=== PATIENT | female | born 1960 | race Caucasian/White ===

== ENCOUNTER → 2017-05-16 | Outpatient (CLI) | payer OTHER ==
[~2017-05-16] MED LIST: ACIPHEX20 MG PO; ALBUTEROL17 GM INH; ALPRAZOLAM; ALPRAZOLAM PO; AMITRIPTYLINE H50 MG PO; AMITRYPTYLINE PO; BACTRIM DS TABL1 TAB PO; CALCIUM 600 +1 EAC3 PO; CARAFATE; CLOPIDOGREL75 MG PO; DILANTIN PO; DOXYCYCLINE PO; ESCITALOPRAM OX20 MG PO; HYDROCODONE/A1 UDTA2; IPRATR-ALBUTEROL3 ML; KEPPRA500 M2 PO; KEPPRA500 MG PO; KEPPRA750 M1 PO; KEPPRA750 MG PO; LEVAQUIN PO; LEXAPRO PO; LEXAPRO20 MG PO; LIPITOR PO; LIPITOR80 MG PO; LOPID600 MG PO; LORTAB 10-3251 EACH PO; LORTAB 10-5001 EACH PO; LORTAB 10/500 T1 TAB PO; METHADONE; METHADONE HCL10 MG PO; METHADONE PO; NEURONTIN PO; PHENERGAN PO; PLAVIX PO; POSTURE600 MG PO; PREDNISONE PO; PRILOSEC; PRO AIR; PRO AIR INH; PROAIR HFA8.5 GM; PROAIR HFA8.5 GM IH; PROAIR HFA8.5 GM INH; PROZAC; PROZAC PO; PYRIDIUM PO; RANITIDINE HCL150 M1 PO; SIMVASTATIN20 MG PO; SOMA PO; VICODIN; VISTARIL; XANAX1 MG PO
--- NOTE | ~2017-05-16 | MY29 ---
[facility] A Service of [facility] RADIOLOGY TEXT RESULTS PATIENT: JONATHAN NICHOLSON LOCATION: [facility] : 60 UNIT #: [id number] AGE: [address]: Latia Daly MD SEX: F ORDER DR: [id number] [id number] [facility]. [place], [place] [address] [id number] O MR#: [id number] Acc #: [id number] NAME: JONATHAN NICHOLSON : 1960 SEX: F STUDY DATE/TIME: 05/16/2017 13:00 UNIT: [facility] ROOM: STUDY DESCRIPTION: MY SUDHAKAR SCREENING W/ CAD BILAT Attending Physician: Latia Daly M.D. Referring Physician: Latia Daly M.D. Ordering Physician: Latia Daly M.D. Primary Care Physician: Latia Daly M.D. MEDICAL IMAGING REPORT This report is preliminary unless electronic signature is present EXAM Bilateral digital screening mammogram with CAD. COMPARISON May 09, 2016, November 21, 2015, October 02, 2015, September 30, 2012, and October 29, 2010. INDICATION Breast cancer screening. 56-year-old asymptomatic female who reports benign excisional biopsy of the right breast as well as a grandmother and aunts with breast cancer. FINDINGS There are scattered fibroglandular densities. Overall breast density has increased slightly bilaterally and it is noted the compression thickness is diminished from comparison study suggesting interval weight loss. There are no suspicious findings in either breast. IMPRESSION 1. No mammographic evidence of malignancy. Continued annual screening mammography and clinical breast exam are recommended. 2. Diffusely mildly increased breast density, possibly due to interval weight loss. This is a benign finding given the bilateral symmetric nature. Patients over the age of 40 are entered into a reminder system with target due date for the next mammogram. A result letter will also be sent to the patient. BIRADS: 2 Benign finding. [facility] A Service of [facility] RADIOLOGY TEXT RESULTS PATIENT: JONATHAN NICHOLSON LOCATION: [facility] : 60 UNIT #: [id number] AGE: [address]: Latia Daly MD SEX: F ORDER DR: Dictated by... Eliel Daniel M.D. THIS IS AN ELECTRONICALLY VERIFIED REPORT Eliel Daniel M.D. at 05/21/2017 12:09 PM KATELYN/julio c TD: 05/16/2017 16:03 JOB #: [id number] MEDICAL IMAGING REPORT Page 1 of 1 COPY
== END | disposition home or self-care (01) ==
LOC: CWCC 12:26
DX: Z12.31 Encounter for screening mammogram for malignant neoplasm of breast (principal); Z80.3 Family history of malignant neoplasm of breast; R92.8 Other abnormal and inconclusive findings on diagnostic imaging of breast
CPT/HCPCS: G0202

== ENCOUNTER → 2017-08-06 | Outpatient (CLI) | payer MEDICARE ==
--- NOTE | ~2017-08-06 | CR7 ---
[facility] A Service of [facility] RADIOLOGY TEXT RESULTS PATIENT: JONATHAN NICHOLSON LOCATION: [facility] : 60 UNIT #: [id number] AGE: [address]: Leyda Gracia APRN SEX: F ORDER DR: [id number] [facility] [address] [place], [place] [address] [id number] O MR#: [id number] #: [id number] NAME: JONATHAN NICHOLSON : 1960 SEX: F STUDY DATE/TIME: 08/06/2017 13:34 UNIT: [facility] ROOM: STUDY DESCRIPTION: CR Abdomen Single AP View Attending Physician: Leyda Gracia Aprn Referring Physician: Leyda Gracia Aprn Ordering Physician: Leyda Gracia Aprn Primary Care Physician: Latia Daly M.D. MEDICAL IMAGING REPORT This report is preliminary unless electronic signature is present EXAM Abdomen single view INDICTIONS Abdominal pain and hematuria for a few days. FINDINGS A supine view of the abdomen was obtained. There is a 3 mm calcification near the left kidney but I believe this represents the calcification seen in the left renal artery on the CT scan of 02/28/16. There is also a 1 mm calcification left of the pelvis that represents a phlebolith seen on the same CT scan. No definite renal or ureteral calculi are visible. He bowel gas pattern is normal. IMPRESSION Small calcification just below the left L1 transverse process probably represents a renal artery calcification seen on a CT scan of 02/28/16. There is also a small calcification in the pelvis. It clearly represents a small phlebolith seen on that same CT scan. No definite renal or ureteral stones are visible. N Dictated by... Ash Bergeron M.D. THIS IS AN ELECTRONICALLY VERIFIED REPORT Ash Bergeron M.D. at 08/07/2017 3:57 PM JAMES/drake TD: 08/07/2017 11:48 JOB #: [id number] [facility] A Service of [facility] RADIOLOGY TEXT RESULTS PATIENT: JONATHAN NICHOLSON LOCATION: [facility] #: [id number] : 60 UNIT #: [id number] AGE: [address]: Leyda Gracia APRN SEX: F ORDER DR: MEDICAL IMAGING REPORT Page 1 of 1 COPY
== END | disposition home or self-care (01) ==
LOC: CRAD 12:57
DX: R10.9 Unspecified abdominal pain (principal); R31.9 Hematuria, unspecified; N28.89 Other specified disorders of kidney and ureter
CPT/HCPCS: 74000